=== PATIENT | male | born 1970 | race Caucasian/White ===

== ENCOUNTER 2017-04-16 16:04 | Outpatient (CLI) | payer BC ==
[~2017-04-16] VITALS: Ht 174 cm; Wt 60.0 kg
[~2017-04-16 16:04] MED LIST: ESOM40CA PO; FOLI-49 PO; IND10 PO; LACT10SO26 PO; LEVE500V10 PO; LORA-408 PO; PENT400T24 PO; SPIR25TA PO; THIA100T10 PO
[2017-04-16 16:10] VITALS: BP 115/57; PULSE 64; RESP 18; Ht 174 cm; Wt 60.0 kg
[2017-04-16] MEDS ORDERED: MULT-542 PO (16:28)
[2017-04-16] MEDS ORDERED: PANT40TA4 PO (16:28)
[2017-04-16] MEDS ORDERED: ZONI100C48 PO (16:28)
[2017-04-16] MEDS ORDERED: ACET-2047 PO (16:28)
[2017-04-16] MEDS ORDERED: NICO1PAT6 TD (16:28)
[2017-04-16] MEDS ORDERED: PROP10TA6 PO (16:28)
[2017-04-16] MEDS ORDERED: LEVE750T8 PO (16:28)
[2017-04-16] MEDS ORDERED: LACT20SO2 PO (16:28)
--- NOTE | 2017-04-16 16:34 | PN ---
Date/Time of Note Date/Time of Note DATE: 04/16/17 TIME: 16:24 Outpatient Progress Note Chief Complaint Seizure disorder/alcohol abuse/drug abuse/PUD/cirrhosis/thrombocytopenia/ gallstone HPI Seizure disorder/patient was recently admitted with seizure, patient was picked up from the street, patient is noncompliant with the medication, and patient was discharged home on medication, Alcohol abuse/patient has history of chronic alcohol abuse, patient even have alcohol intoxication even at present, Drug abuse/patient has history of Patel substance abuse, PUD/no nausea or vomiting, history of heartburn, Cirrhosis/patient has alcohol-related cirrhosis, patient still drinking, had multiple history of seizure disorder secondary to alcohol withdrawal, Thrombocytopenia/patient has few bruises, on her hands and legs, no fall recently, Gallstone/no nausea or vomiting or fever chill, Review of Systems Const: No Fever, no chills, no Wt. loss, no Fatigue, normal appetite, no diaphoresis. Eyes: No pain, no discharge, no redness, no visual change, no foreign body. ENT: No pain, no bleeding, no congestion, no sore throat, no dysphagia, no discharge or rhinitis. Lymph: No adenopathy, no tender nodes, no lymphedema. Resp: No SOB, no cough, no sputum, no wheezing, no chest pain. CV: No chest pain, no palpitaions, no BECKWITH, no PND, no edema. GI: Normal appetite, no pain, no nausea, no vomiting, no diarrhea, no blood, no constipation. : No frequency, no urgency, no dysuria, no hematuria, no flank pain, no discharge, no bleeding. Musc: , no back pain, no neck pain, no knee pain, no restricted ROM. Skin: No rash, no skin lesions, no erythema, no laceration, few few bruising, no pruritus. Neuro: No ZIEGLER, no dizziness, no syncope, no seizure, no focal-weakness. Endo: No polyuria, no polydypsia, no dry-skin, no temp-intolerance. Psych: No hallucinations, no depression, no anxiety, no suicidal ideation. Ext: No edema, no pain, no ulcer, no weakness. Physical Exam General Appearance: A 47 year-old male who appears well-developed, well- nourished, in no acute distress. HEENT: Head normocephalic, atraumatic. Pupils equal, round, reactive to light and accommodate. Sclerae are slight jaundice. Nasal turbinates pink without erythema or nasal discharge. Mucous membranes pink and moist without lesions. Oropharynx clear without any exudate or discharge. NECK: Supple. Trachea midline, No thyromegaly, No cervical lymphadenopathy, No mass, No carotid bruits, No JVD, Carotid pulses 2+ bilaterally. PULMONARY: Clear to auscultaion bilaterally, No retractions, Chest expansion symmetric bilaterally, no rales, no ronchi, no dulness on percussion. CARDIAC: Normal SI and S2, Regular rate and rythm, no murmur, gallop, or rub. GASTROINTESTINAL: Abdomen is soft, non-tender, Non Rigid, No distention, Positive bowel sounds x4 quadrants, Liver normal. SKIN: Warm, dry, no rash, few bruise, no echmosis. EXTREMITIES: Bilateral lower extremities no edema, no phlabitus, pulse palpable , no contracture. MUSCULOSKELETAL: Spine Normal, Non-tender, Normal range of motion, No swelling, no deformity, no clubbing, or cyanosis, the patient has no edema to bilateral lower extremities, dorsalis pedis pulses palpable bilaterally. NEUROLOGIC: The patient is awake, alert, oriented, responding to yes/no questions appropriately, moving all extremities, cranial nerve intact, normal strenght, normal power, normal coordination, normal gait. Allergies Coded Allergies: No Known Drug Allergy (Verified Allergy, Unknown, 07/10/11) PMH UTI/seizure disorder/alcohol withdrawal/drug abuse/alcohol abuse/PUD/cirrhosis/ thrombocytopenia/gallstones/eczema/bronchitis/noncompliant Social Hx Patient doing moderately heavy, for years, patient also take drugs, and patient also smokes, Family Hx Patient has a father who is 74-year-old, has difficulty in walking, has a walker , Assessment/Plan Impression Seizure disorder/alcohol abuse/drug abuse/PUD/cirrhosis/thrombocytopenia/ gallstone Plan Patient very high risk for repeated admission, patient drinks constantly, and even at present patient has alcohol in the system, Patient educated about his disease and condition, explained that he will be repeated admitting to the hospital for multiple complex medical problem, and may ultimately , Patient was also sent explained to stop drinking alcohol, stop drinking any kind of beer, and stop smoking, and stop taking drugs, patient told me best luck for that, Fall precaution, Patient has not been taking medication except Keppra, patient was given the list of medication I medication and put in a paper back, patient is not able to follow the instruction, patient very high risk for repeated admission, patient lives with the father, I have explained patient he should go to senior care, refused, patient forgets about his medication, will be back to the hospital soon, explained to the patient, if he changes his mind and if he wants to go to the senior care I will arrange with insurance company, Patient noncompliant with the medication, risk of sudden high, Medications Home Meds Reported Medications Esomeprazole Mag Trihydrate (Nexium) 40 Mg Capsule.dr, 40 MG PO DAILY 02/13/11 Spironolactone* (Aldactone*) 25 Mg Tablet, 25 MG PO DAILY 02/13/11 Pentoxifylline* (Trental*) 400 Mg Tablet.sa, 400 MG PO TID 02/13/11 Levetiracetam (Keppra) 500 Mg/5 Ml Vial, 500 MG PO BID 02/13/11 Thiamine* (Thiamine*) 100 Mg Tablet, 100 MG PO DAILY 02/13/11 Lactulose* (Constulose*) 10 G/15 Ml Solution, 10 GM PO BID 02/13/11 Folic Acid* (Folic Acid*) 1 Mg Tablet, 1 MG PO DAILY 02/13/11 Propranolol Hcl* (Inderal*) 10 Mg Tab, 10 MG PO BID 02/13/11 Lorazepam (Ativan) 1 Mg Tablet, 1 MG PO DAILY 02/13/11 DINA CORTÉS MD Apr 16, 2017 16:34
[2017-04-16] MEDS ORDERED: NAPR-688 PO (22:20)
== END 2017-04-16 17:00 | disposition home or self-care (01) ==
LOC: DCC 16:04
PROVIDERS: ATTEND Internal Medicine
DX: G40.909 Epilepsy, unspecified, not intractable, without status epilepticus (principal); F10.10 Alcohol abuse, uncomplicated; K70.30 Alcoholic cirrhosis of liver without ascites; F19.10 Other psychoactive substance abuse, uncomplicated; K27.9 Peptic ulcer, site unspecified, unspecified as acute or chronic, without hemorrhage or perforation; D69.6 Thrombocytopenia, unspecified; K80.80 Other cholelithiasis without obstruction; Z91.14 Patient's other noncompliance with medication regimen; Z72.0 Tobacco use
CPT/HCPCS: G0463

== ENCOUNTER 2017-04-16 17:25 | Emergency (ER) | END 2017-04-16 22:47 | disposition home or self-care (01) | DX: F10.129 Alcohol abuse with intoxication, unspecified (principal); F17.210 Nicotine dependence, cigarettes, uncomplicated | CPT/HCPCS: 71100; Z7502 ==

== ENCOUNTER 2018-01-06 17:56 | Emergency (ER) | END 2018-01-06 20:41 | disposition home or self-care (01) ==

== ENCOUNTER 2019-02-11 20:30 | Emergency (ER) | payer BC ==
[~2019-02-11] VITALS: Ht 170.2 cm; Wt 60.6 kg
[~2019-02-11 20:30] MED LIST changes: +ACET-2047 PO; -ESOM40CA PO; -FOLI-49 PO; +HYDR-4011 PO; -IND10 PO; -LACT10SO26 PO; +LACT20SO2 PO; -LEVE500V10 PO; +LEVE750T8 PO; -LORA-408 PO; +MULT-542 PO; +NAPR-688 PO; +PANT40TA4 PO; -PENT400T24 PO; -SPIR25TA PO; +ZONI100C48 PO
[2019-02-11 20:41] VITALS: Ht 170.2 cm; Wt 60.6 kg
[2019-02-11] MEDS ORDERED: HYDROCODONE/APAP (5/325) TAB PO ONE (23:00)
[2019-02-12 05:59] VITALS: BP 117/89; PULSE 78; RESP 18
== END 2019-02-12 06:15 | disposition home or self-care (01) ==
LOC: E/R 20:30
DX: D69.6 Thrombocytopenia, unspecified (principal); R60.0 Localized edema; M79.671 Pain in right foot; Z87.891 Personal history of nicotine dependence
CPT/HCPCS: 36430; 71045; 73630; 80053; 83880; 85025; 86644; 86850; 86900; 86901; 99285; P9035; Z7610